=== PATIENT | female | born 1960 | race Caucasian/White ===

== ENCOUNTER → 2024-06-07 | Outpatient (CLI) | payer OTHER ==
--- NOTE | 2024-06-09 22:52 | MM ---
Reason for Exam: Screening (asymptomatic). Last mammogram was performed 23 year(s) and 9 month(s) ago. Patient History: Menarche at age 13. Hysterectomy at age 32. Postmenopausal. Maternal grandmother had breast cancer. Risk Values: Camila 5 year model risk: 1.2%. NCI Lifetime model risk: 4.7%. Prior Study Comparison: 09/06/1996 Screening Mammogram, Unknown. 09/18/2000 Bilateral Screening Mammogram, [facility]. Tissue Density: The breasts are heterogeneously dense, which may obscure small masses. Findings: Analyzed By CAD. The pattern is symmetrical. Benign vascular calcification is present bilaterally. No suspicious groups of microcalcifications, spiculated or lobular masses, architectural distortion or other secondary signs of malignancy are mammographically apparent. Overall Assessment: Benign, BI-RAD 2 Management: Screening Mammogram of both breasts in 1 year. A negative mammogram report should not preclude additional follow up of suspicious palpable abnormalities. Patient should continue monthly self breast exam. A clinical breast exam by your physician is recommended on an annual basis and results should be correlated with mammographic findings. Note on Camila scores and lifetime risk: 1. A Camila score greater than 3% is considered moderate risk. If this is the case, consider specialist referral to assess eligibility for a risk reducing agent. 2. If overall lifetime risk for the development of breast cancer is 20% or higher, the patient may qualify for future screening with alternating mammogram and breast MRI. [facility], , 06/09/2024 10:49 PM. Electronically signed and approved by: Matthew Amos D.O. Radiologis
== END | disposition home or self-care (01) ==
LOC: RADMAMWWP 12:49
PROVIDERS: ATTEND Family Medicine
DX: Z12.31 Encounter for screening mammogram for malignant neoplasm of breast
CPT/HCPCS: 77067

== ENCOUNTER 2024-07-15 07:01 | Day surgery (SDC) | payer OTHER ==
[2024-07-13 12:00] VITALS: BMI 32.1
[2024-07-15 07:42] VITALS: TEMP 97.1
[2024-07-15] MEDS: LIDOCAINE 1% (10MG/ML) FOR IV START INTRADERMA STA (07:50)
[2024-07-15] MEDS: IV FLUID CONTINUATION 1,000 ML IV ONE (07:50)
[2024-07-15] MEDS: LACTATED RINGERS 1,000 ML IV SCH (07:50)
[2024-07-15] MEDS ORDERED: PROPOFOL 10 MG/ML 20 ML VIAL IV ONE (08:02)
--- NOTE | 2024-07-15 08:09 | P.GSHP ---
History of Present Illness H&P Date: 07/15/24 Chief Complaint: Screening colonoscopy This a 64-year-old female who presents today for screening colonoscopy. Patient denies any significant GI complaints. Past Medical History Past Medical History: GERD/Reflux, Hyperlipidemia, Hypertension, Musculoskeletal Disorder Additional Past Medical History / Comment(s): Osteoporosis left hip. History of Any Multi-Drug Resistant Organisms: None Reported Past Surgical History: Tonsillectomy Additional Past Surgical History / Comment(s): Partial hysterectomy. Past Anesthesia/Blood Transfusion Reactions: No Reported Reaction Smoking Status: Former smoker - Past Family History Mother Family Medical History: No Reported History Medications and Allergies Home Medications Medication Instructions Recorded Confirmed Type Alendronate Sodium 70 mg PO WEEKLY 07/13/24 07/13/24 History Aspirin [Adult Low Dose Aspirin EC] 81 mg PO DAILY 07/13/24 07/13/24 History Atorvastatin Calcium 40 mg PO HS 07/13/24 07/13/24 History Ergocalciferol [Vitamin D2 (1250 1,250 mcg PO TU 07/13/24 07/13/24 History Mcg = 64699 Iu)] Famotidine 40 mg PO HS 07/13/24 07/13/24 History Fexofenadine HCl [Tiff Allergy] 180 mg PO DAILY 07/13/24 07/13/24 History Losartan Potassium 50 mg PO QAM 07/13/24 07/13/24 History Allergies Allergy/AdvReac Type Severity Reaction Status Date / Time No Known Allergies Allergy Verified 07/15/24 07:39 Surgical - Exam Vital Signs Temp Pulse Resp BP Pulse Ox 97.1 F L 71 16 135/62 98 07/15/24 07:40 07/15/24 07:40 07/15/24 07:40 07/15/24 07:40 07/15/24 07:40 - General well developed, well nourished, no distress - Eyes PERRL - ENT normal pinna, normal nares - Neck no masses - Respiratory normal expansion - Cardiovascular Rhythm: regular - Abdomen Abdomen: soft, non tender Assessment and Plan Assessment: Will perform screening colonoscopy.
--- NOTE | 2024-07-15 08:19 | P.OP ---
Date of Procedure: 07/15/24 Preoperative Diagnosis: Screening colonoscopy Postoperative Diagnosis: External hemorrhoids Procedure(s) Performed: Colonoscopy Anesthesia: MAC Surgeon: Nitesh Harding Pathology: none sent Condition: stable Disposition: PACU Description of Procedure: PROCEDURE: The patient was placed on the endoscopy table in the lateral position. Digital rectal examination was performed which r showed external hemorrhoids. Flexible colonoscope was then placed in the patient's anus and passed throughout the entire colon. The ileocecal valve was visualized. The cecum, ascending, transverse, descending and sigmoid colon were normal. The rectum was normal as well. There were no masses, polyps or diverticula noted in the entire colon. SUMMARY OF FINDINGS: Normal colonoscopy.
[2024-07-15 09:10] VITALS: BP 121/76; PULSE 74; RESP 20
== END 2024-07-15 09:12 | disposition home or self-care (01) ==
LOC: ORWHC2ENDO 07:01
PROVIDERS: ATTEND Surgery